=== PATIENT | female | born 1975 | race Native Hawaiian/Other Pacific Islander ===

== ENCOUNTER 2023-11-21 11:02 | Inpatient (IN) | payer MEDICARE, MEDICAID ==
[2023-11-21] VITALS (8 sets, daily range): BP systolic 129–148; BP diastolic 60–79; PULSE 69–79; RESP 18–23; TEMP 97.9–98; O2SAT 98–100
[~2023-11-21] VITALS: Ht 167.6 cm; Wt 53.7 kg
[~2023-11-21 11:02] MED LIST: AMLO-257 GT; CIPR500T10 GT; ESCI-8 GT; HYDR-4527 GT; HYDR2TAB37 GT; INSU100V SQ; METO25 GT; METR500 PO; MIRT-89 GT; PANT-31 GT; SENN-376 GT; SULF-261 GT
[2023-11-21 12:22] LABS: COVID AG,FIA SOURCE NASAL SWAB
[2023-11-21 12:44] LABS: BASOPHILS % (AUTO) 0.1 % (0.0-2.0); EOSINOPHILS % (AUTO) 1.5 % (1.0-6.0); HEMOGLOBIN 10.1 g/dL (12.0-16.0); LYMPHOCYTES # (AUTO) 0.7 K/uL (1.0-4.8); MEAN CORPUSCULAR HEMOGLOBIN 29.4 pg (26.0-34.0); MEAN CORPUSCULAR HGB CONC 31.7 G/dL (31.0-37.0); MEAN CORPUSCULAR VOLUME 93 fL (80-100); MONOCYTES % (AUTO) 10.4 % (2.0-9.0); NEUTROPHILS # (AUTO) 8.1 K/uL (1.8-7.7); PLATELET COUNT (AUTO) 327 K/uL (150-450); RED BLOOD CELL COUNT(AUTO) 3.45 MIL/uL (4.00-5.20); RED CELL DISTRIBUTION WIDTH 20.8 % (11.5-14.5); WHITE BLOOD COUNT (AUTO) 10.1 K/uL (4.5-11.0)
[2023-11-21 12:52] LABS: SARS-COV2 (COVID) ANTIGEN,FIA Negative (Negative)
[2023-11-21 12:54] LABS: CREATININE 6.05 mg/dL (0.60-1.30); POTASSIUM 5.5 mmol/L (3.5-5.1)
[2023-11-21 13:01] LABS: ALBUMIN 2.2 g/dL (3.4-5.0); BILIRUBIN,TOTAL 0.5 mg/dL (0.1-1.0); TOTAL PROTEIN, SERUM 10.3 g/dL (6.4-8.2)
[2023-11-21 13:03] LABS: CALCIUM, TOTAL 11.7 mg/dL (8.8-10.5)
[2023-11-21 13:04] LABS: TROPONIN I-HIGH SENSITIVITY 84 ng/L (<51)
[2023-11-21] MEDS ORDERED: HYDROmorphone HCL 2 MG TABLET PEG PRN (21:30)
[2023-11-21 21:50] LABS: GLUCOMETER DEV NAME(LOC) 5S.2C; GLUCOSE,POINT OF CARE 58 MG/DL (70-110)
[2023-11-21] MEDS ORDERED: INSULIN LISPRO 100 UNITS/ML SQ PRN (22:00)
[2023-11-21] MEDS ORDERED: ONDANSETRON HCL 4 MG/2 ML VIAL IVP PRN (22:00)
[2023-11-21] MEDS ORDERED: HydrOXYzine HCL 25 MG TABLET GT PRN (22:00)
[2023-11-22] VITALS (28 sets, daily range): BP systolic 100–154; BP diastolic 60–84; PULSE 68–87; RESP 18–28; TEMP 97.2–98.6; O2SAT 98–100
[2023-11-22] MEDS: DEXTROSE 50%-WATER 25 GM/50 ML SYRINGE IVP PRN (00:36)
[2023-11-22] MEDS: HYDROmorphone HCL 2 MG TABLET GT PRN (00:54)
[2023-11-22] MEDS: MIRTAZAPINE 15 MG TABLET GT SCH (00:54)
[2023-11-22 02:16] LABS: GLUCOMETER DEV NAME(LOC) 5S.1B; GLUCOSE,POINT OF CARE 45 MG/DL (70-110)
[2023-11-22 02:16] LABS: GLUCOMETER DEV NAME(LOC) 5S.1B; GLUCOSE,POINT OF CARE 167 MG/DL (70-110)
[2023-11-22 06:59] LABS: BASOPHILS % (AUTO) 0.1 % (0.0-2.0); EOSINOPHILS % (AUTO) 1.3 % (1.0-6.0); HEMATOCRIT 25.3 % (36-46); HEMOGLOBIN 8.2 g/dL (12.0-16.0); LYMPHOCYTES # (AUTO) 0.6 K/uL (1.0-4.8); LYMPHOCYTES % (AUTO) 6.9 % (22.0-44.0); MEAN CORPUSCULAR HGB CONC 32.4 G/dL (31.0-37.0); MEAN CORPUSCULAR VOLUME 93 fL (80-100); MONOCYTES # (AUTO) 0.8 K/uL (0.1-1.0); MONOCYTES % (AUTO) 9.6 % (2.0-9.0); NEUTROPHILS # (AUTO) 7.1 K/uL (1.8-7.7); NEUTROPHILS % (AUTO) 82.1 % (40.0-70.0); PLATELET COUNT (AUTO) 266 K/uL (150-450); RED BLOOD CELL COUNT(AUTO) 2.73 MIL/uL (4.00-5.20); RED CELL DISTRIBUTION WIDTH 19.8 % (11.5-14.5); WHITE BLOOD COUNT (AUTO) 8.7 K/uL (4.5-11.0)
[2023-11-22 07:08] LABS: ALBUMIN 1.7 g/dL (3.4-5.0); BILIRUBIN,TOTAL 0.5 mg/dL (0.1-1.0); CALCIUM, TOTAL 10.9 mg/dL (8.8-10.5); CREATININE 6.48 mg/dL (0.60-1.30); POTASSIUM 5.8 mmol/L (3.5-5.1)
[2023-11-22 08:18] LABS: MAGNESIUM 5.2 mg/dL (1.80-2.40)
[2023-11-22] MEDS: METOPROLOL TARTRATE 25 MG TABLET GT SCH (08:47)
[2023-11-22] MEDS: AmLODIPine BESYLATE 5 MG TABLET GT SCH (08:47)
[2023-11-22] MEDS: SENNOSIDES 8.8 MG/5 ML SYRUP UDCUP GT SCH (08:48)
[2023-11-22] MEDS: ESCITALOPRAM OXALATE 10 MG TABLET GT SCH (08:48)
[2023-11-22] MEDS: LANSOPRAZOLE 15 MG SOLUBLE TABLET GT SCH (08:48)
[2023-11-22] MEDS ORDERED: PANTOPRAZOLE SODIUM 40 MG DR TABLET PO SCH (09:00)
[2023-11-22] MEDS ORDERED: SODIUM CHLORIDE 0.9% 1,000 ML ONE (11:04)
[2023-11-22 11:58] LABS: C.DIFF GDH ANTIGEN, Stool Negative (Negative); C.DIFF TOXINS A&B, Stool Negative (Negative)
[2023-11-22] MEDS: EPOETIN ALFA 10,000 UNITS/ML VIAL SQ SCH (15:38)
[2023-11-22 16:21] LABS: GLUCOMETER DEV NAME(LOC) 5S.2C; GLUCOSE,POINT OF CARE 176 MG/DL (70-110)
[2023-11-22 16:21] LABS: GLUCOMETER DEV NAME(LOC) 5S.1B; GLUCOSE,POINT OF CARE 52 MG/DL (70-110)
[2023-11-22 16:21] LABS: GLUCOMETER DEV NAME(LOC) 5S.1B; GLUCOSE,POINT OF CARE 101 MG/DL (70-110)
[2023-11-23] VITALS (27 sets, daily range): BP systolic 99–171; BP diastolic 43–86; PULSE 70–97; RESP 18–27; TEMP 98.2–98.9; O2SAT 96–100
[2023-11-23 00:11] LABS: GLUCOMETER DEV NAME(LOC) 5S.1B; GLUCOSE,POINT OF CARE 77 MG/DL (70-110)
[2023-11-23 05:50] LABS: GLUCOMETER DEV NAME(LOC) 5S.2C; GLUCOSE,POINT OF CARE 98 MG/DL (70-110)
[2023-11-23 07:56] LABS: GLUCOMETER DEV NAME(LOC) 5S.2C; GLUCOSE,POINT OF CARE 103 MG/DL (70-110)
[2023-11-23 11:28] LABS: BASOPHILS % (AUTO) 0.2 % (0.0-2.0); EOSINOPHILS % (AUTO) 1.2 % (1.0-6.0); HEMATOCRIT 27.4 % (36-46); HEMOGLOBIN 8.7 g/dL (12.0-16.0); LYMPHOCYTES # (AUTO) 0.6 K/uL (1.0-4.8); MEAN CORPUSCULAR HEMOGLOBIN 29.8 pg (26.0-34.0); MEAN CORPUSCULAR HGB CONC 31.7 G/dL (31.0-37.0); MEAN CORPUSCULAR VOLUME 94 fL (80-100); MONOCYTES % (AUTO) 10.9 % (2.0-9.0); NEUTROPHILS # (AUTO) 7.5 K/uL (1.8-7.7); NEUTROPHILS % (AUTO) 81.7 % (40.0-70.0); PLATELET COUNT (AUTO) 283 K/uL (150-450); RED BLOOD CELL COUNT(AUTO) 2.91 MIL/uL (4.00-5.20); WHITE BLOOD COUNT (AUTO) 9.2 K/uL (4.5-11.0)
[2023-11-23 11:55] LABS: GLUCOMETER DEV NAME(LOC) 5S.2C; GLUCOSE,POINT OF CARE 94 MG/DL (70-110)
[2023-11-23 12:08] LABS: BASOPHILS % (AUTO) 0.2 % (0.0-2.0); EOSINOPHILS % (AUTO) 1.4 % (1.0-6.0); HEMATOCRIT 24.9 % (36-46); LYMPHOCYTES # (AUTO) 0.5 K/uL (1.0-4.8); LYMPHOCYTES % (AUTO) 5.5 % (22.0-44.0); MEAN CORPUSCULAR HEMOGLOBIN 29.8 pg (26.0-34.0); MEAN CORPUSCULAR HGB CONC 32.1 G/dL (31.0-37.0); MEAN CORPUSCULAR VOLUME 93 fL (80-100); MONOCYTES % (AUTO) 10.9 % (2.0-9.0); NEUTROPHILS # (AUTO) 7.7 K/uL (1.8-7.7); PLATELET COUNT (AUTO) 255 K/uL (150-450); RED BLOOD CELL COUNT(AUTO) 2.68 MIL/uL (4.00-5.20); RED CELL DISTRIBUTION WIDTH 20.1 % (11.5-14.5); WHITE BLOOD COUNT (AUTO) 9.4 K/uL (4.5-11.0)
[2023-11-23] MEDS ORDERED: SODIUM CHLORIDE 0.9% IRRIG BTL 1,000 ML IRRIG ONE (17:09)
[2023-11-23 18:26] LABS: GLUCOMETER DEV NAME(LOC) 5S.1B; GLUCOSE,POINT OF CARE 113 MG/DL (70-110)
[2023-11-23] MEDS: MUPIROCIN CALCIUM 2% 22 GM OINTMENT NASAL SCH (21:05)
[2023-11-24] VITALS (33 sets, daily range): BP systolic 99–167; BP diastolic 58–103; PULSE 75–117; RESP 18–36; TEMP 97.8–102.3; O2SAT 95–100
[2023-11-24] MEDS: ALBUTEROL SULFATE 2.5 MG/0.5 ML NEB SOLUTION NEB PRN (02:37)
[2023-11-24] MEDS: ACETYLCYSTEINE 10% 100 MG/ML 4 ML NEB SOLUTION NEB SCH (02:37)
[2023-11-24 07:52] LABS: BASOPHILS % (AUTO) 0.2 % (0.0-2.0); EOSINOPHILS % (AUTO) 1.3 % (1.0-6.0); HEMATOCRIT 28.1 % (36-46); HEMOGLOBIN 8.9 g/dL (12.0-16.0); LYMPHOCYTES # (AUTO) 0.5 K/uL (1.0-4.8); LYMPHOCYTES % (AUTO) 7.5 % (22.0-44.0); MEAN CORPUSCULAR HEMOGLOBIN 29.3 pg (26.0-34.0); MEAN CORPUSCULAR HGB CONC 31.5 G/dL (31.0-37.0); MEAN CORPUSCULAR VOLUME 93 fL (80-100); MONOCYTES # (AUTO) 0.9 K/uL (0.1-1.0); MONOCYTES % (AUTO) 11.6 % (2.0-9.0); NEUTROPHILS # (AUTO) 5.8 K/uL (1.8-7.7); NEUTROPHILS % (AUTO) 79.4 % (40.0-70.0); PLATELET COUNT (AUTO) 277 K/uL (150-450); RED BLOOD CELL COUNT(AUTO) 3.03 MIL/uL (4.00-5.20); RED CELL DISTRIBUTION WIDTH 20.2 % (11.5-14.5); WHITE BLOOD COUNT (AUTO) 7.3 K/uL (4.5-11.0)
[2023-11-24 08:03] LABS: CREATININE 2.92 mg/dL (0.60-1.30); MAGNESIUM 3.1 mg/dL (1.80-2.40); POTASSIUM 3.8 mmol/L (3.5-5.1)
[2023-11-24 08:16] LABS: GLUCOMETER DEV NAME(LOC) 5S.2C; GLUCOSE,POINT OF CARE 122 MG/DL (70-110)
[2023-11-24] MEDS: [UNRECOGNIZED DRUG - REMARK] MISC SCH (09:00)
[2023-11-24 11:56] LABS: GLUCOMETER DEV NAME(LOC) 5S.1B; GLUCOSE,POINT OF CARE 133 MG/DL (70-110)
[2023-11-24] MEDS: INSULIN LISPRO 100 UNITS/ML SQ PRN (12:37)
[2023-11-24 15:35] LABS: GLUCOMETER DEV NAME(LOC) 5S.2C; GLUCOSE,POINT OF CARE 169 MG/DL (70-110)
[2023-11-24 17:51] LABS: GLUCOMETER DEV NAME(LOC) 5S.2C; GLUCOSE,POINT OF CARE 114 MG/DL (70-110)
[2023-11-24] MEDS ORDERED: 0.9% SODIUM CHLORIDE 5 ML NEB SOLUTION NEB ONE (19:20)
[2023-11-24] MEDS ORDERED: ACETAMINOPHEN 325 MG TABLET PEG PRN (22:15)
[2023-11-24] MEDS: ACETAMINOPHEN 650 MG RECTAL SUPPOSITORY PR PRN (22:27)
[2023-11-24] MEDS ORDERED: CEFEPIME HCL 1 GM in DEXTROSE 5%-WATER 50 ML IV SCH (22:30)
[2023-11-24] MEDS: *CLINICAL-CEFEPIME DOSING CLINICAL ONE (22:39)
[2023-11-24] MEDS ORDERED: SODIUM CHLORIDE 0.9% 250 ML IV ONE (23:20)
[2023-11-24] MEDS: CEFEPIME HCL 1 GM in DEXTROSE 5%-WATER 50 ML IV ONE (23:40)
[2023-11-25] VITALS (31 sets, daily range): BP systolic 90–160; BP diastolic 40–95; PULSE 70–104; RESP 18–33; TEMP 97.6–98.1; O2SAT 97–100
[2023-11-25] MEDS: VANCOMYCIN HCL 1 GM in DEXTROSE 5%-WATER 250 ML IV ONE (00:25)
[2023-11-25] MEDS ORDERED: VANCOMYCIN HCL 1 GM in DEXTROSE 5%-WATER 250 ML IV PRN (00:45)
[2023-11-25] MEDS ORDERED: 0.9% SODIUM CHLORIDE 5 ML NEB SOLUTION NEB ONE (01:37)
[2023-11-25 06:01] LABS: GLUCOMETER DEV NAME(LOC) 5N.2C; GLUCOSE,POINT OF CARE 110 MG/DL (70-110)
[2023-11-25 10:07] LABS: HEPATITIS A ANTIBODY IGM Negative (Negative); HEPATITIS B CORE IGM Negative (Negative); HEPATITIS C AB (EIA) Non Reactive (Non Reactive)
[2023-11-25] MEDS: MIDODRINE HCL 2.5 MG TABLET PO PRN (13:41)
[2023-11-25 17:45] LABS: GLUCOMETER DEV NAME(LOC) 5S.2C; GLUCOSE,POINT OF CARE 142 MG/DL (70-110)
[2023-11-25] MEDS: ATORVASTATIN CALCIUM 20 MG TABLET GT SCH (21:41)
[2023-11-25] MEDS: CEFEPIME HCL 1 GM in DEXTROSE 5%-WATER 50 ML IV SCH (23:13)
[2023-11-26] VITALS (27 sets, daily range): BP systolic 113–158; BP diastolic 56–84; PULSE 72–90; RESP 16–31; TEMP 97.4–98.1; O2SAT 98–100
[2023-11-26 05:21] LABS: GLUCOMETER DEV NAME(LOC) 5S.1B; GLUCOSE,POINT OF CARE 195 MG/DL (70-110)
[2023-11-26 05:21] LABS: GLUCOMETER DEV NAME(LOC) 5S.1B; GLUCOSE,POINT OF CARE 145 MG/DL (70-110)
[2023-11-26 05:21] LABS: GLUCOMETER DEV NAME(LOC) 5S.1B; GLUCOSE,POINT OF CARE 130 MG/DL (70-110)
[2023-11-26] MEDS ORDERED: ACET1030H NEB (10:57)
[2023-11-26] MEDS ORDERED: ATOR20TA65 GT (10:57)
[2023-11-26 12:30] LABS: GLUCOMETER DEV NAME(LOC) 5S.2C; GLUCOSE,POINT OF CARE 88 MG/DL (70-110)
[2023-11-26 12:30] LABS: GLUCOMETER DEV NAME(LOC) 5N.2C; GLUCOSE,POINT OF CARE 128 MG/DL (70-110)
[2023-11-26 18:11] LABS: GLUCOMETER DEV NAME(LOC) 5S.2C; GLUCOSE,POINT OF CARE 109 MG/DL (70-110)
[2023-11-26] MEDS ORDERED: SODIUM CHLORIDE 0.9% 250 ML IV ONE (18:33)
[2023-11-26] MEDS: VANCOMYCIN HCL 500 MG in DEXTROSE 5%-WATER 100 ML IV ONE (18:40)
[2023-11-27] VITALS (11 sets, daily range): BP systolic 140–154; BP diastolic 65–71; PULSE 71–106; RESP 18–29; TEMP 97.4–98.1; O2SAT 98–100
[2023-11-27 02:56] LABS: GLUCOMETER DEV NAME(LOC) 5N.2C; GLUCOSE,POINT OF CARE 128 MG/DL (70-110)
[2023-11-27 06:45] LABS: GLUCOMETER DEV NAME(LOC) 5S.2C; GLUCOSE,POINT OF CARE 146 MG/DL (70-110)
[2023-11-27 12:01] LABS: GLUCOMETER DEV NAME(LOC) 5N.2C; GLUCOSE,POINT OF CARE 152 MG/DL (70-110)
== END 2023-11-27 13:00 | DRG 870 ==
LOC: EMS 11:02 → AHU 12:53 → ICU 13:13 → 5S 15:08
PROVIDERS: ADMIT Family Medicine; ATTEND Family Medicine
PROC: 5A1955Z Respiratory Ventilation, Greater than 96 Consecutive Hours (ICD-10-PCS; principal; 2023-11-21)
PROC: 5A1D70Z Performance of Urinary Filtration, Intermittent, Less than 6 Hours Per Day (ICD-10-PCS; 2023-11-22)
PROC: 5A1D70Z Performance of Urinary Filtration, Intermittent, Less than 6 Hours Per Day (ICD-10-PCS; 2023-11-23)
PROC: 5A1D70Z Performance of Urinary Filtration, Intermittent, Less than 6 Hours Per Day (ICD-10-PCS; 2023-11-25)
DX: A41.9 Sepsis, unspecified organism (principal); J15.1 Pneumonia due to Pseudomonas; N18.6 End stage renal disease; J69.0 Pneumonitis due to inhalation of food and vomit; E46 Unspecified protein-calorie malnutrition; Z99.11 Dependence on respirator [ventilator] status; Z68.1 Body mass index [BMI] 19.9 or less, adult; B44.9 Aspergillosis, unspecified; I50.9 Heart failure, unspecified; Z20.822 Contact with and (suspected) exposure to COVID-19; J44.9 Chronic obstructive pulmonary disease, unspecified; F32.9 Major depressive disorder, single episode, unspecified; D63.8 Anemia in other chronic diseases classified elsewhere; E87.5 Hyperkalemia; I35.0 Nonrheumatic aortic (valve) stenosis; B96.20 Unspecified Escherichia coli [E. coli] as the cause of diseases classified elsewhere; Z93.0 Tracheostomy status; Z93.1 Gastrostomy status; E11.22 Type 2 diabetes mellitus with diabetic chronic kidney disease; Z99.2 Dependence on renal dialysis; Z89.512 Acquired absence of left leg below knee
CPT/HCPCS: 71045; 80048; 80053; 80074; 80202; 82271; 82550; 82962; 83735; 84484; 85025; 85730; 87040; 87081; 87324; 87449; 87481; 90935; 92526; 92610; 93005; 93306; 94002; 94003; 94640; 97162; 97167; 97530; 97535; 99285; G0378; J0692; J0885; J3370; J7030; J7050; J7060; Q9967; 36415-L1; 36415-TC; J7613